=== PATIENT | female | born 1975 | race Caucasian/White ===

== ENCOUNTER → 2021-04-04 06:15 | Outpatient (CLI) | payer BC, SELFPAY ==
--- NOTE | 2021-04-04 06:17 | CA_ITS ---
APPROVED REPORT Exam: Exercise Treadmill Technologist: Larissa Downey, Ht: 5 ft 4 in Wt: 139 lbs BSA: 1.68 m2 HR: 62 bpm BP: 131/65 mmHg Medical History Medications: Aspirin,,,,, Vitamin B12,,,,, Multivitamin,,,,, Stress Test Details Test: Qamar HR Resting HR: 76 bpm Max Heart Rate (APMHR): 173 bpm Max HR Achieved: 149 bpm Target HR (85% APMHR): 147 bpm % of APMHR: 86 Recovery HR: 82 bpm BP Resting BP: 112/79 mmHg Max BP: 136/78 mmHg Recovery BP: 105.0/62.0 mmHg ECG Resting ECG: NSR, PVCs, cannot R/O old anterior IL Clinical Exercise duration: 09:32 min Highest Stage Achieved: Exercise capacity: 10.1 METs Stress ECG Conclusion Exercised 9:32 on Qamar Protocol Max HR: 149 % of PM: 86% Max BP: 136/78 METs: 10.1 Test stopped due to: SOA, fatigue Symptoms: No CP. Arrhythmias/Ectopy: Occ isolated PVCs, Rare PAC. less than 1.5mm ST segment depression noted.Negative for ischemia. Test Summary Stage 3 02:00 14.0 3.4 133 . . . . REST 06:41 0.0 0.0 76 . 112/ 79 . . Stage 1 01:00 10.0 1.7 96 . . . . Stage 1 02:00 10.0 1.7 105 . . . . Stage 1 03:00 10.0 1.7 110 . 134/ 80 . . Stage 2 01:00 12.0 2.5 115 . . . . Stage 2 02:00 12.0 2.5 120 . . . . Stage 2 03:00 12.0 2.5 122 . 136/ 78 . . Stage 3 01:00 14.0 3.4 129 . . . . Stage 3 02:00 14.0 3.4 133 . . . . Stage 3 03:00 14.0 3.4 132 . . . . Stage 4 00:32 16.0 4.2 90 . . . Stop exercise at 09:32 RECOVERY 01:00 0.0 0.0 112 . . . . RECOVERY 02:00 0.0 0.0 103 . 118/ 70 . . RECOVERY 03:00 0.0 0.0 91 . 122/ 73 . . RECOVERY 04:00 0.0 0.0 80 . 114/ 70 . . RECOVERY 05:00 0.0 0.0 82 . 114/ 70 . . RECOVERY 05:39 0.0 0.0 79 . 105/ 62 . . Electronically signed by : Nato Pond MD 04/04/2021 11:28:38
--- NOTE | 2021-04-04 06:17 | CA_ITS ---
APPROVED REPORT EXAM: Comprehensive 2D, Doppler, and color-flow Echocardiogram Wheel Alignment Technician: Peggy Rodriguez, RCS, RVS Ht: 5 ft 4 in Wt: 139lbs BSA: 1.68 BP: 116/82 mmHg Indications: CP, Palpitations, Abn EKG, Fatigue, Hx-COVID, Family Hx- valvular HD 2D Dimensions Aortic Root 2.66 cm LA Volume 23.40 mL Left Atrium 2.06 cm LA Volume Index 13.90 mL/m2 (M/F) 16-34 LVOT 1.70 cm (M/F) 1.5-2.5 M-Mode Dimensions RVDd 2.29 cm (0.9-2.6) LA Diam 2.89 cm (1.9-4.0) LVDd 4.35 cm (3.5-5.7) Ao Diam 3.06 cm (2.0-3.7) LVDs 2.58 cm (3.5-5.7) IVSd 0.78 cm (0.6-1.1) PWd 0.67 cm (0.6-1.1) EF (Teich) 71.80% EPSs 0.38 cm FS 40.70% EDV (Teich) 85.40 mL TAPSE 2.12 (<1.7) ESV (Teich) 24.10 mL LV Diastology E Decel Time 280.00 (160-240 msec) E/A Ratio 1.33 MED E' 13.60 (< 7 cm/sec) MED A' 9.30 cm/s E'/MED E' Ratio 6.49 (>14) LAT E' 14.70 (<10 cm/sec) LAT A' 9.10 cm/s E/LAT E' Ratio 6.00 (>14) Aortic Valve LVOT Max 100.00 (70-110 cm/s) LVOT VTI 20.50 cm AoV Peak Mitchel. 124.00 (50-130 cm/s) AO Peak GR. 6.20 mmHg AO Mean GR. 3.10 (<5 mmHg) AO VTI 23.30 (18-25 cm) ELIZA (VTI) 2.00 (2.5-4.5 cm2) Mitral Valve MV A Velocity 66.00 (40-130 cm/s) E/A Ratio 1.33 MV Decel. Time 280.00 (160-240 ms) Pulmonary Valve PV Peak Velocity 84.00 (50-150 cm/s) [place] End VMAX 136.00 cm/s Tricuspid Valve TR P. Velocity 191.00 cm/s RAP Estimate 10.00 mmHg RVSP 24.50 mmHg Left Ventricle Left atrium normal size, left ventricle is normal size, there is no concentric left ventricular hypertrophy, visually estimated ejection fraction 55% with no regional wall motion abnormality, diastolic parameters are within normal range. Right Ventricle Right atrium and right ventricle are normal size and contractility. Aortic Valve Aortic valve is grossly normal, there is no aortic stenosis or aortic insufficiency. Mitral Valve Mitral valve grossly normal, there is trace mitral regurgitation. Tricuspid Valve Tricuspid valve grossly normal, there is trace tricuspid regurgitation, tricuspid regurgitation jet velocity is inadequate for calculation of the right ventricular systolic pressure. Pulmonic Valve Pulmonic valve is poorly visualized. Great Vessels Aortic root is normal size. Inferior vena cava is normal size with normal inspiratory collapse. Pericardium No significant pericardial effusion noted. Conclusion 1. Normal left ventricular size, preserved left ventricular systolic function, visually estimated ejection fraction 55% with no regional wall motion abnormality, diastolic parameters are within normal range. 2. Trace mitral and tricuspid regurgitation. 3. No significant pericardial effusion noted. 4. Inferior vena cava normal size with normal inspiratory collapse. Electronically signed by : Nato Pond MD 04/04/2021 11:43:46
--- NOTE | 2021-04-04 06:17 | NM_ITS ---
APPROVED REPORT Exam: Nuclear Stress Test Indication: FORMER TOB USER, FM HX, C.P., ABN EKG Patient Location: Outpatient Stress Tech: Larissa Downey DC Tech:JAKE JuradoT RT (R)(N)(M) Ht: 5 ft 4 in Wt: 140 lbs Bra Size: 34C HR: 76 bpm BP: 112/79 mmHg BSA: 1.68 m2 BMI: 24.0 Procedure: Patient exercised on Qamar protocol 9:32 minutes and sec, resting heart rate 76 bpm, resting blood pressure 112/79 mmHg, with exercise maximum heart rate achived was 149 bpm which is 86 % of the maximum predicted heart rate and blood pressure was 136/78 mmHg. Patient denied any complaint of chest pain. Patient has Good exercise capacity, achieved 10.1 METs of workload on treadmill, the blood pressure response to exercise was Adequate. Electrocardiogram Resting electrocardiogram showed sinus rhythm, with exercise there is less than 1.[address] segment depression noted from the baseline EKG. The EKG portion of the exercise Myoview is negative for ischemia. Cardiac Stress and Resting SPECT Images: Cardiac Stress and Resting SPECT images were obtained using technetium 99m Myoview 31.3 mCi stress and 10.26 mCi at rest. Gated SPECT for analysis of segmental wall motion and calculation of the ejection fraction also done. Cardiac stress and rest SPECT images show mild fixed defect in the anterior wall with normal contractility gated SPECT is likely secondary to soft tissue attenuation, no reversible ischemia seen, computer derived ejection fraction is 52% with no regional wall motion abnormality, right ventricle is normal size and contractility. Conclusion: 1. The EKG portion of the exercise Myoview is negative for ischemia, patient has good exercise capacity achieved 10.1 METs of workload on treadmill, the blood pressure response to exercise was adequate, there was no exercise-induced chest discomfort. 2. No scintigraphic evidence of reversible ischemia seen, computer derived ejection fraction 52% with no regional wall motion abnormality, right ventricle is normal size and contractility. 3. Likely normal exercise Myoview study. Electronically signed by : Nato Pond MD 04/04/2021 11:39:12
--- NOTE | 2021-04-04 08:21 | HMH.ITSHM ---
Current Home Medications as stated by this patient Laverne Jim or hr representative. []MULTIVITAMIN VITAMIN B12 ASA
== END ==
LOC: RAD 06:17
PROVIDERS: PCP Internal Medicine; Visit Provider Urology
DX: R07.89 Other chest pain (principal); I49.3 Ventricular premature depolarization; R94.31 Abnormal electrocardiogram [ECG] [EKG]
CPT/HCPCS: 78452; 93017; 93306; A9502